=== PATIENT | male | born 1960 | race Caucasian/White ===

== ENCOUNTER 2017-04-04 12:04 | Emergency (ER) | payer MEDICARE, OTHER ==
[2017-04-04] MEDS ORDERED: SUBLIMAZE 100 MCG/2 ML IV ONE (12:23)
[2017-04-04] MEDS ORDERED: Pepcid 20 MG VIAL IV ONE ×2 (12:23→12:45)
[2017-04-04] MEDS ORDERED: SUBLIMAZE 100 MCG/2 ML ONE (12:45)
[2017-04-04 12:57] LABS: BASOPHIL % 0.5 % (0.0-0.4); Basophil (Absolute #) 0.04 (0-0.4); Eosinophil % 0.8 % (0.00-5.0); Eosinophil (Absolute #) 0.06 (0-0.5); Granulocyte Absolute (ANC) 5.13 (1.4-6.9); Granulocytes % 64.6 % (36.0-66.0); Hematocrit 44.3 % (42-50); Hemoglobin 14.8 gm/dl (12.5-18.0); Lymphocyte (Absolute #) 2.12 (1.0-4.6); Lymphocytes % 26.7 % (24.0-44.0); Mean Corpuscular Hemoglobin 30.4 pg (26-32); Mean Corpuscular Hgb Concent. 33.4 g/dl (32-36); Mean Platelet Volume 10.6 fl (6-9.5); Monocyte (Absolute #) 0.59 (0.0-1.3); Monocytes % 7.4 % (0.0-12.0); Platelet Count 237 K/mm3 (150-450); Red Blood Count 4.87 M/mm3 (4.1-5.6); Red Cell Distribution Width 13.5 % (11.5-14.0); White Blood Count 7.9 K/mm3 (4.0-10.5)
--- NOTE | 2017-04-04 13:03 | ERPHSYRPT ---
- History of Present Illness Time Seen by Provider: 04/04/17 12:23 Historian: patient, family Patient Subjective Stated Complaint: Pt states "I have been having this pain in my right upper side/abdomen for the past 7 days. I went to the OR and they told me to come to the ED for possible gall bladder issue." Triage Nursing Assessment: Pt alert and oriented X 3, skin pwd. Pt ambulates with an upright steady gait, able to speak in clear full sentences. When pt moves, he groans. Physician History: CC: right side pain Hx: 56 y/o OR patient with RUQ abd pain. He has this pain for one week. Not associated with eating. He was seen at OR OP clinic this AM, had normal chest and rib xray. He has been moving furniture and felt like he might have hurt a rib. No discreet injury. He was sent to this ER for CT scan or sonogram to evaluate for gallbladder pathology. No prior abd surgeries. No fever or chills. Normal urine although dark in color this AM. Timing/Duration: week(s) (1) Allergies/Adverse Reactions: amoxicillin Allergy (Severe, Verified 04/04/17 12:27) egg Allergy (Severe, Verified 04/04/17 12:27) Latex, Natural Rubber Allergy (Severe, Verified 04/04/17 12:27) peanut Allergy (Severe, Verified 04/04/17 12:27) Home Medications: Albuterol Sulfate [Proair Respiclick] 90 mcg IH DAILY 04/04/17 [History] Ammonium Lactate [Amlactin] 3 gm TOP DAILY 04/04/17 [History] Aspirin [Adult Low Dose Aspirin EC] 81 mg PO DAILY 04/04/17 [History] Carboxymethylcellulos/Glycerin [Refresh Optive Gel Eye Drops] 10 ml OP DAILY [History] Cetirizine HCl [Allergy Relief] 10 mg PO DAILY 04/04/17 [History] Chlorthalidone 25 mg PO DAILY 04/04/17 [History] Cholecalciferol (Vitamin D3) [Vitamin D3] 1,000 unit PO DAILY 04/04/17 [History] Duloxetine HCl 30 mg [Cymbalta 30 MG Capsule] 30 mg PO DAILY 04/04/17 [ History] Lamotrigine [Lamictal Xr] 200 mg PO DAILY 04/04/17 [History] Meloxicam 15 mg [Meloxicam 15 MG] 15 mg PO DAILY 04/04/17 [History] Potassium Chloride [Klor-Con] 20 meq PO DAILY 04/04/17 [History] Pravastatin Sodium [Pravachol] 80 mg PO BID 04/04/17 [History] Sennosides 8.6 mg PO DAILY 04/04/17 [History] Tamsulosin HCl 0.4 mg [Flomax 0.4 MG] 0.4 mg PO DAILY 04/04/17 [History] Zolpidem Tartrate 10 mg PO HS 04/04/17 [History] Hx Tetanus, Diphtheria Vaccination/Date Given: No Hx Influenza Vaccination/Date Given: No Hx Pneumococcal Vaccination/Date Given: No Immunizations Up to Date: Yes - Review of Systems Constitutional: Malaise, No Fever, No Chills Eyes: No Symptoms Ears, Nose, & Throat: No Symptoms Respiratory: No Cough, No Dyspnea Cardiac: No Chest Pain, No Edema, No Syncope Abdominal/Gastrointestinal: Abdominal Pain (RUQ), No Nausea, No Vomiting, No Diarrhea Genitourinary Symptoms: No Dysuria, No Hematuria Musculoskeletal: No Back Pain Skin: No Rash Neurological: No Headache All Other Systems: Reviewed and Negative - Past Medical History Pertinent Past Medical History: Yes Neurological History: No Pertinent History ENT History: No Pertinent History Cardiac History: No Pertinent History Respiratory History: Asthma Endocrine Medical History: No Pertinent History Musculoskeletal History: Arthritis GI Medical History: No Pertinent History History: No Pertinent History Psycho-Social History: Anxiety, Depression Male Reproductive Disorders: No Pertinent History - Past Surgical History Past Surgical History: Yes Other Surgical History: Circumcision. Foot. Fingers. - Social History Smoking Status: Never smoker Exposure to second hand smoke: Yes Drug Use: none Patient Lives Alone: No (, retired as maintenance at [employer]) - Nursing Vital Signs Nursing Vital Signs: Initial Vital Signs Temperature 98.3 F 04/04/17 12:19 Pulse Rate 86 04/04/17 12:19 Respiratory Rate 20 04/04/17 12:19 Blood Pressure 166/85 04/04/17 12:19 O2 Sat by Pulse Oximetry 96 04/04/17 12:19 Pain Scale Pain Intensity 2 - Physical Exam General Appearance: alert Eye Exam: PERRL/EOMI Ears, Nose, Throat Exam: normal ENT inspection, moist mucous membranes Neck Exam: normal inspection, non-tender, supple Respiratory Exam: normal breath sounds, lungs clear, No respiratory distress Cardiovascular Exam: regular rate/rhythm, No murmur Gastrointestinal/Abdomen Exam: soft, tenderness (right upper but no cuevas sign. The pain is a little more lateral.) Male Genitalia Exam: normal genitalia, No hernia, No testicular tenderness Back Exam: normal inspection, normal range of motion, No CVA tenderness Extremity Exam: normal inspection, normal range of motion, No calf tenderness, No pedal edema Neurologic Exam: alert, oriented x 3, cooperative, sensation nml, No motor deficits Skin Exam: warm, dry, No rash SpO2 Interpretation: normal SpO2: 96 Oxygen Delivery: Room Air - Course Nursing assessment & vital signs reviewed: Yes - CT Exams abd/pelvis CT Interpretation: Tele-radiologist Report (no acute, colonoc diverticulosis, partially visualized inferior right upper lobe noncalficied nodule.) - Radiology Ultrasound Exam GB Ultrasound: Other (per tech: contracted gallbladder with some wall thickening but no stones. not NPO.) Ordered Tests: Active Orders 24 hr Category Date Time Status IV Insertion STAT Care 04/04/17 12:23 Active NPO (ED) STAT Care 04/04/17 12:23 Active ABDOMEN AND PELVIS W CONTRAST [CT] Stat Exams 04/04/17 12:24 Completed GALLBLADDER [US] Stat Exams 04/04/17 14:28 Completed CBC W DIFF Stat Lab 04/04/17 12:46 Completed CMP Stat Lab 04/04/17 12:46 Completed LIPASE Stat Lab 04/04/17 12:46 Completed Lactic Acid Stat Lab 04/04/17 12:45 Completed Lactic Acid Stat Lab 04/04/17 14:50 Ordered UA W/RFX UR CULTURE Stat Lab 04/04/17 13:00 Completed Medication Summary Discontinued Medications Generic Name Dose Route Start Last Admin Trade Name Freq PRN Reason Stop Dose Admin Famotidine 20 mg 04/04/17 12:23 04/04/17 12:52 Pepcid 20 Mg Vial IV 04/04/17 12:24 20 mg STAT ONE Administration Famotidine Confirm 04/04/17 12:45 Pepcid 20 Mg Vial Administered 04/04/17 12:46 Dose 20 mg IV .STK-MED ONE Fentanyl Citrate 50 mcg 04/04/17 12:23 04/04/17 12:52 Sublimaze 100 Mcg/2 Ml IV 04/04/17 12:24 50 mcg STAT ONE Administration Fentanyl Citrate Confirm 04/04/17 12:45 Sublimaze 100 Mcg/2 Ml Administered 04/04/17 12:46 Dose 100 mcg .ROUTE .STK-MED ONE Lab/Rad Data: Laboratory Result Diagrams 04/04/17 12:46 04/04/17 12:46 Laboratory Results 04/04/17 04/04/17 04/04/17 Range/Units 13:00 12:46 12:46 WBC 7.9 (4.0-10.5) K/mm3 RBC 4.87 (4.1-5.6) M/mm3 Hgb 14.8 (12.5-18.0) gm/dl Hct 44.3 (42-50) % MCV 91.0 (78-100) fl MCH 30.4 (26-32) pg MCHC 33.4 (32-36) g/dl RDW 13.5 (11.5-14.0) % Plt Count 237 (150-450) K/mm3 MPV 10.6 H (6-9.5) fl Gran % 64.6 (36.0-66.0) % Lymphocytes % 26.7 (24.0-44.0) % Monocytes % 7.4 (0.0-12.0) % Eosinophils % 0.8 (0.00-5.0) % Basophils % 0.5 (0.0-0.4) % Basophils # 0.04 (0-0.4) Sodium 140 (136-145) mEq/L Potassium 3.3 L (3.5-5.1) mEq/L Chloride 101 (98-107) mEq/L Carbon Dioxide 28.3 (21-32) mEq/L Anion Gap 13.8 (5-15) MEQ/L BUN 11 (9-20) mg/dL Creatinine 1.14 (0.55-1.30) mg/dl Estimated GFR > 60 ML/MIN Glucose 273 H (70-110) MG/DL Lactic Acid (0.4-2.0) Calcium 9.3 (8.5-10.1) mg/dL Total Bilirubin 0.50 (0.2-1.0) mg/dL AST 35 (15-37) U/L ALT 58 (12-78) U/L Alkaline Phosphatase 100 (46-116) U/L Serum Total Protein 7.2 (6.4-8.2) gm/dL Albumin 3.7 (3.4-5.0) g/dL Lipase 114 (73-393) U/L Ur Collection Type CLEAN CATCH Urine Color YELLOW (YELLOW) Urine Appearance CLEAR (CLEAR) Urine pH 5.0 (5-6) Ur Specific [place] 1.015 (1.005-1.025) Urine Protein NEGATIVE (Negative) Urine Ketones NEGATIVE (NEGATIVE) Urine Blood NEGATIVE (0-5) Arley/ul Urine Nitrite NEGATIVE (NEGATIVE) Urine Bilirubin NEGATIVE (NEGATIVE) Urine Urobilinogen NORMAL (0-1) mg/dL Ur Leukocyte Esterase NEGATIVE (NEGATIVE) Urine Culture Reflexed NO (NO) Urine Glucose 500 (NEGATIVE) mg/dL Specimen Received 04-04-17 1300 04/04/17 Range/Units 12:45 WBC (4.0-10.5) K/mm3 RBC (4.1-5.6) M/mm3 Hgb (12.5-18.0) gm/dl Hct (42-50) % MCV (78-100) fl MCH (26-32) pg MCHC (32-36) g/dl RDW (11.5-14.0) % Plt Count (150-450) K/mm3 MPV (6-9.5) fl Gran % (36.0-66.0) % Lymphocytes % (24.0-44.0) % Monocytes % (0.0-12.0) % Eosinophils % (0.00-5.0) % Basophils % (0.0-0.4) % Basophils # (0-0.4) Sodium (136-145) mEq/L Potassium (3.5-5.1) mEq/L Chloride (98-107) mEq/L Carbon Dioxide (21-32) mEq/L Anion Gap (5-15) MEQ/L BUN (9-20) mg/dL Creatinine (0.55-1.30) mg/dl Estimated GFR ML/MIN Glucose (70-110) MG/DL Lactic Acid 2.0 (0.4-2.0) Calcium (8.5-10.1) mg/dL Total Bilirubin (0.2-1.0) mg/dL AST (15-37) U/L ALT (12-78) U/L Alkaline Phosphatase (46-116) U/L Serum Total Protein (6.4-8.2) gm/dL Albumin (3.4-5.0) g/dL Lipase (73-393) U/L Ur Collection Type Urine Color (YELLOW) Urine Appearance (CLEAR) Urine pH (5-6) Ur Specific [place] (1.005-1.025) Urine Protein (Negative) Urine Ketones (NEGATIVE) Urine Blood (0-5) Arley/ul Urine Nitrite (NEGATIVE) Urine Bilirubin (NEGATIVE) Urine Urobilinogen (0-1) mg/dL Ur Leukocyte Esterase (NEGATIVE) Urine Culture Reflexed (NO) Urine Glucose (NEGATIVE) mg/dL Specimen Received - Progress Progress Note: 04/04/17 15:40 Pt stable. He has pain meds thru OR. Will add pepcid. Advised he have lung nodule rechecked and he get sugar rechecked. Spoke to dr Spencer at OR who will see in follow up. Counseled pt/family regarding: lab results, diagnosis, need for follow-up, rad results - Departure Time of Disposition: 15:40 Departure Disposition: Home Clinical Impression: RUQ abdominal pain, Lung nodule, Type 2 diabetes mellitus Condition: Fair Critical Care Time: No Referrals: JULIOCESAR SPENCER MD [NON-STAFF PHY W/O PRIVILEGES] - Instructions: Acute Abdomen (Belly Pain), Type 2 Diabetes, Diabetes Diet Additional Instructions: [place] diet. Follow up with OR clinic this week. You need to have lung nodule rechecked and need to have blood sugar managed. Return for problems or concerns. Take your pain medication as already prescribed thru OR. Prescriptions: Famotidine 20 mg [Pepcid 20 MG] 1 tab PO BID #20 tablet
[2017-04-04 13:26] LABS: ALBUMIN 3.7 g/dL (3.4-5.0); ALKALINE PHOSPHATASE 100 U/L (46-116); ANION GAP 13.8 MEQ/L (5-15); BLOOD UREA NITROGEN 11 mg/dL (9-20); CHLORIDE 101 mEq/L (98-107); Calcium 9.3 mg/dL (8.5-10.1); Carbon Dioxide 28.3 mEq/L (21-32); Creatinine 1 1.14 mg/dl (0.55-1.30); Glucose 273 MG/DL (70-110); LIPASE 114 U/L (73-393); Potassium 3.3 mEq/L (3.5-5.1); SGOT/AST 35 U/L (15-37); SGPT/ALT 58 U/L (12-78); SODIUM 140 mEq/L (136-145); Total Protein 7.2 gm/dL (6.4-8.2)
[2017-04-04 14:07] LABS: Appearance CLEAR (CLEAR); Bilirubin NEGATIVE (NEGATIVE); Blood NEGATIVE Ery/ul (0-5); Glucose 500 mg/dL (NEGATIVE); Ketones NEGATIVE (NEGATIVE); Leukocyte Esterase NEGATIVE (NEGATIVE); Nitrite NEGATIVE (NEGATIVE); Protein,Urine Dip NEGATIVE (Negative); Specific Gravity 1.015 (1.005-1.025); Urobilinogen NORMAL mg/dL (0-1)
[2017-04-04 14:15] VITALS: BP 144/84
--- NOTE | 2017-04-04 14:23 | XRAY ---
Indication: Right upper quadrant pain 9 days. Multiple contiguous axial images obtained through the abdomen and pelvis using 80 cc Isovue 370 contrast only. Comparison: None Lung bases demonstrates mild bibasilar dependent atelectasis and left base fibrosis/scarring with tiny calcified granulomas. First image demonstrates partially visualized 8 mm noncalcified nodule in the inferior right upper lobe. Heart is not enlarged. Noncontrasted stomach and bowel loops appear nonobstructed. Normal appendix. Mild transverse colon diverticulosis without diverticulitis. No free fluid/air. Mild diffuse fatty liver with 1.5 cm left lobe cyst. Tiny calcified splenic granulomas. Remaining liver, gallbladder, pancreas, spleen, adrenal glands, kidneys, ureters, bladder, and aorta appear unremarkable. No pathologic retroperitoneal lymphadenopathy. Osseous structures intact. Small fatty left inguinal hernia. Impression: 1. No acute intra-abdominal/pelvic abnormalities. 2. Incidental colonic diverticulosis, fatty liver, hepatic cyst, and fatty left inguinal hernia. 3. Partially visualized inferior right upper lobe noncalcified nodule possibly granulomatous as there is evidence for old granulomatous disease elsewhere. CT DI 34.71
--- NOTE | 2017-04-04 15:34 | XRAY ---
Indication: Right upper quadrant pain. Two-dimensional right upper quadrant abdominal sonogram performed. Comparison: None Gallbladder partially contracted with borderline wall thickening measuring 2.8 mm. No gallstones or pericholecystic fluid. Common bile duct measures 4.2 mm. No intrahepatic biliary distention. Fatty echogenic liver. There is a 1.8 x 1.2 x 1.6 cm left lobe septated hepatic cyst versus [id number] cysts. No solid hepatic mass or ascites. Visualized portions of the pancreas and right kidney appear unremarkable. Right kidney measures 12 cm in length. Impression: 1. Partially contracted gallbladder without gallstones, cholecystitis, or biliary distention. 2. Fatty liver. Left lobe septated cyst versus [id number] cysts. 3. Remaining right upper quadrant sonogram is negative.
[2017-04-04 15:48] VITALS: PULSE 88; O2SAT 98
== END 2017-04-04 15:57 | disposition home or self-care (01) ==
LOC: ED 12:04
DX: R10.11 Right upper quadrant pain (principal); R91.1 Solitary pulmonary nodule; E11.9 Type 2 diabetes mellitus without complications; Z79.899 Other long term (current) drug therapy
CPT/HCPCS: 36000; 36415; 74177; 76705; 80053; 81002; 83605; 83690; 85025; 96374; 96375; 99284; J3010